=== PATIENT | male | born 1995 | race Caucasian/White ===

== ENCOUNTER 2017-09-06 23:44 | Emergency (ER) | payer MEDICAID ==
[~2017-09-06] VITALS: Ht 180.3 cm; Wt 102.5 kg
[2017-09-07 01:03] VITALS: BP 129/69
== END 2017-09-07 01:06 | disposition home or self-care (01) ==
LOC: EMS 23:46
DX: R07.89 Other chest pain (principal); F12.90 Cannabis use, unspecified, uncomplicated
CPT/HCPCS: 71020; 99284

== ENCOUNTER 2021-01-20 22:11 | Emergency (ER) | payer MEDICAID ==
[~2021-01-20] VITALS: Ht 177.8 cm; Wt 102.3 kg
[2021-01-20] MEDS ORDERED: ACET-2247 PO (22:24)
[2021-01-20] MEDS ORDERED: CAPSAICIN 0.025% 60 GM CREAM TP ONE (23:30)
[2021-01-20] MEDS ORDERED: KETOROLAC TROMETHAMINE 30 MG/ML VIAL IM ONE (23:30)
[2021-01-20] MEDS ORDERED: ACETAMINOPHEN 500 MG TABLET PO ONE (23:30)
[2021-01-20 23:50] VITALS: BP 136/87
== END 2021-01-21 | disposition home or self-care (01) ==
LOC: EMS 22:11
DX: M54.17 Radiculopathy, lumbosacral region (principal)
CPT/HCPCS: 96372; 99283; J1885

== ENCOUNTER 2021-01-21 15:19 | Emergency (ER) | payer MEDICAID ==
[~2021-01-21] VITALS: Ht 177.8 cm; Wt 102.3 kg
[~2021-01-21 15:19] MED LIST: ACET-2247 PO
[2021-01-21] MEDS ORDERED: KETOROLAC TROMETHAMINE 30 MG/ML VIAL IVP ONE (15:45)
[2021-01-21 16:17] LABS: BASOPHILS % (AUTO) 0.6 % (0.0-2.0); EOSINOPHILS % (AUTO) 0.3 % (1.0-6.0); HEMATOCRIT 45.5 % (41-53); HEMOGLOBIN 15.3 g/dL (13.5-17.5); LYMPHOCYTES # (AUTO) 2.4 K/uL (1.0-4.8); LYMPHOCYTES % (AUTO) 23.4 % (22.0-44.0); MEAN CORPUSCULAR HEMOGLOBIN 29.7 pg (26.0-34.0); MEAN CORPUSCULAR HGB CONC 33.6 G/dL (31.0-37.0); MEAN CORPUSCULAR VOLUME 88 fL (80-100); MONOCYTES # (AUTO) 0.5 K/uL (0.1-1.0); MONOCYTES % (AUTO) 4.8 % (2.0-9.0); NEUTROPHILS # (AUTO) 7.3 K/uL (1.8-7.7); NEUTROPHILS % (AUTO) 70.9 % (40.0-70.0); PLATELET COUNT (AUTO) 240 K/uL (150-450); RED BLOOD CELL COUNT(AUTO) 5.16 MIL/uL (4.50-5.90); RED CELL DISTRIBUTION WIDTH 13.3 % (11.5-14.5)
[2021-01-21 16:32] VITALS: BP 117/63
[2021-01-21 16:42] LABS: ANION GAP 16 mmol/L (8-16); CARBON DIOXIDE 25 mmol/L (22-29); CHLORIDE 103 mmol/L (98-107); GLOMERULAR FILTR. RATE CALC > 60 mL/min (>60); GLUCOSE,RANDOM 98 mg/dL (70-110); POTASSIUM 3.4 mmol/L (3.5-5.1); SODIUM SERUM 144 mmol/L (136-145); UREA NITROGEN, BLOOD 13 mg/dL (7-18)
== END 2021-01-21 17:23 | disposition home or self-care (01) ==
LOC: EMS 15:19
DX: F41.9 Anxiety disorder, unspecified (principal)
CPT/HCPCS: 36415; 71045; 80048; 84484; 85025; 93005; 96374; 99285; J1885

== ENCOUNTER 2021-01-28 23:26 | Emergency (ER) | payer MEDICAID ==
[~2021-01-28] VITALS: Ht 177.8 cm; Wt 102.3 kg
[2021-01-29 00:11] VITALS: BP 135/70
== END 2021-01-29 00:11 | disposition home or self-care (01) ==
LOC: EMS 23:26
DX: R07.81 Pleurodynia (principal); F41.9 Anxiety disorder, unspecified; M54.5 Low back pain; F17.200 Nicotine dependence, unspecified, uncomplicated; F12.90 Cannabis use, unspecified, uncomplicated
CPT/HCPCS: 93005; 99283

== ENCOUNTER 2021-03-26 00:40 | Emergency (ER) | payer MEDICAID ==
[~2021-03-26] VITALS: Ht 177.8 cm; Wt 113.6 kg
[2021-03-26 01:36] LABS: MEAN CORPUSCULAR HEMOGLOBIN 30.2 pg (26.0-34.0); MEAN CORPUSCULAR HGB CONC 34.2 G/dL (31.0-37.0); MONOCYTES # (AUTO) 0.7 K/uL (0.1-1.0)
[2021-03-26 01:39] LABS: BASOPHILS % (AUTO) 1.3 % (0.0-2.0); EOSINOPHILS % (AUTO) 0.8 % (1.0-6.0); HEMATOCRIT 42.2 % (41-53); HEMOGLOBIN 14.4 g/dL (13.5-17.5); LYMPHOCYTES # (AUTO) 4.2 K/uL (1.0-4.8); LYMPHOCYTES % (AUTO) 35.3 % (22.0-44.0); MEAN CORPUSCULAR VOLUME 88 fL (80-100); MONOCYTES % (AUTO) 6.2 % (2.0-9.0); NEUTROPHILS # (AUTO) 6.7 K/uL (1.8-7.7); NEUTROPHILS % (AUTO) 56.4 % (40.0-70.0); PLATELET COUNT (AUTO) 238 K/uL (150-450); RED BLOOD CELL COUNT(AUTO) 4.78 MIL/uL (4.50-5.90); RED CELL DISTRIBUTION WIDTH 13.2 % (11.5-14.5)
[2021-03-26 01:41] LABS: ANION GAP 9 mmol/L (8-16); CALCIUM, TOTAL 8.8 mg/dL (8.8-10.5); CARBON DIOXIDE 27 mmol/L (22-29); CHLORIDE 103 mmol/L (98-107); CREATININE 0.83 mg/dL (0.60-1.30); GLOMERULAR FILTR. RATE CALC > 60 mL/min (>60); GLUCOSE,RANDOM 110 mg/dL (70-110); POTASSIUM 3.5 mmol/L (3.5-5.1); SODIUM SERUM 139 mmol/L (136-145); UREA NITROGEN, BLOOD 9 mg/dL (7-18)
[2021-03-26 01:46] LABS: ALANINE AMINOTRANSFERASE 64 U/L (12-78); ALBUMIN 4.1 g/dL (3.4-5.0); ALKALINE PHOSPHATASE 114 U/L (46-116); ASPARTATE AMINOTRANSFERASE 22 U/L (15-37); BILIRUBIN,TOTAL 0.7 mg/dL (0.1-1.0); LIPASE 67 U/L (73-393)
[2021-03-26 02:24] VITALS: BP 130/84
== END 2021-03-26 03:18 | disposition home or self-care (01) ==
LOC: EMS 00:41
DX: K92.1 Melena (principal); R10.12 Left upper quadrant pain; F41.9 Anxiety disorder, unspecified; F17.200 Nicotine dependence, unspecified, uncomplicated; F12.90 Cannabis use, unspecified, uncomplicated
CPT/HCPCS: 80053; 83690; 85025; 99283

== ENCOUNTER 2021-03-31 21:26 | Emergency (ER) | payer MEDICAID ==
[~2021-03-31] VITALS: Ht 177.8 cm; Wt 106.8 kg
[2021-03-31] MEDS ORDERED: HYD25 PO (21:35)
[2021-03-31 22:09] LABS: BASOPHILS % (AUTO) 0.9 % (0.0-2.0); EOSINOPHILS % (AUTO) 0.7 % (1.0-6.0); HEMOGLOBIN 15.3 g/dL (13.5-17.5); LYMPHOCYTES # (AUTO) 3.4 K/uL (1.0-4.8); LYMPHOCYTES % (AUTO) 29.8 % (22.0-44.0); MEAN CORPUSCULAR HEMOGLOBIN 30.2 pg (26.0-34.0); MEAN CORPUSCULAR HGB CONC 33.9 G/dL (31.0-37.0); MEAN CORPUSCULAR VOLUME 89 fL (80-100); MONOCYTES # (AUTO) 0.8 K/uL (0.1-1.0); MONOCYTES % (AUTO) 7.1 % (2.0-9.0); NEUTROPHILS % (AUTO) 61.5 % (40.0-70.0); PLATELET COUNT (AUTO) 267 K/uL (150-450); RED BLOOD CELL COUNT(AUTO) 5.06 MIL/uL (4.50-5.90); RED CELL DISTRIBUTION WIDTH 13.1 % (11.5-14.5)
[2021-03-31 22:10] LABS: BILIRUBIN,URINE NEGATIVE (NEGATIVE); GLUCOSE, URINE (UA) NEGATIVE (NEGATIVE); KETONES,URINE NEGATIVE (NEGATIVE); LEUKOCYTE ESTERASE ,URINE NEGATIVE (NEGATIVE); NITRATE,URINE NEGATIVE (NEGATIVE); OCCULT BLOOD,URINE NEGATIVE (NEGATIVE); PROTEIN,URINE NEGATIVE (NEGATIVE)
[2021-03-31 22:11] LABS: APPEARANCE,URINE HAZY (CLEAR)
[2021-03-31 22:17] LABS: ANION GAP 5 mmol/L (8-16); CALCIUM, TOTAL 8.5 mg/dL (8.8-10.5); CARBON DIOXIDE 29 mmol/L (22-29); CHLORIDE 105 mmol/L (98-107); CREATININE 0.88 mg/dL (0.60-1.30); GLOMERULAR FILTR. RATE CALC > 60 mL/min (>60); GLUCOSE,RANDOM 82 mg/dL (70-110); POTASSIUM 3.5 mmol/L (3.5-5.1); SODIUM SERUM 139 mmol/L (136-145); UREA NITROGEN, BLOOD 12 mg/dL (7-18)
[2021-03-31 22:23] LABS: ALANINE AMINOTRANSFERASE 59 U/L (12-78); ALKALINE PHOSPHATASE 107 U/L (46-116); ASPARTATE AMINOTRANSFERASE 25 U/L (15-37); BILIRUBIN,TOTAL 1.4 mg/dL (0.1-1.0); LIPASE 84 U/L (73-393); TOTAL PROTEIN, SERUM 7.5 g/dL (6.4-8.2)
[2021-03-31] MEDS ORDERED: FAMOTIDINE 10 MG/ML 2 ML VIAL IVP ONE (22:30)
[2021-03-31] MEDS ORDERED: BARIUM SULFATE 0.1% SUSPENSION 450 ML BOTTLE PO ONE (22:30)
[2021-03-31] MEDS ORDERED: ONDANSETRON HCL 4 MG/2 ML VIAL IVP ONE (22:30)
[2021-03-31] MEDS ORDERED: PB/HYOSCY/ATR/SCOP/LIDO/MAALOX 55 ML BOTTLE PO ONE (22:30)
[2021-03-31] MEDS ORDERED: KETOROLAC TROMETHAMINE 30 MG/ML VIAL IVP ONE (22:30)
[2021-03-31] MEDS ORDERED: SODIUM CHLORIDE 0.9% 1,000 ML IV ONE (22:30)
[2021-03-31] MEDS ORDERED: IOHEXOL 350 MG/ML 150 ML VIAL ONE (22:34)
[2021-03-31] MEDS ORDERED: SODIUM CHLORIDE 0.9% 100 ML ONE (22:34)
[2021-04-01] MEDS ORDERED: CIPROFLOXACIN HCL 250 MG TABLET PO ONE (02:15)
[2021-04-01] MEDS ORDERED: MetroNIDAZOLE 250 MG TABLET PO ONE (02:15)
[2021-04-01 02:21] VITALS: BP 123/77
== END 2021-04-01 02:38 | disposition home or self-care (01) ==
LOC: EMS 21:26
DX: K52.9 Noninfective gastroenteritis and colitis, unspecified (principal); F12.90 Cannabis use, unspecified, uncomplicated; Z79.899 Other long term (current) drug therapy
CPT/HCPCS: 36415; 74177; 80053; 81003; 83690; 85025; 96361; 96374; 96375; 99285; A9575; J1885; J2405; J3490; J7030; J7050

== ENCOUNTER 2021-04-14 18:35 | Emergency (ER) | payer MEDICAID ==
[~2021-04-14] VITALS: Ht 172.7 cm; Wt 81.8 kg
[~2021-04-14 18:35] MED LIST changes: -ACET-2247 PO; +HYD25 PO
[2021-04-14 19:14] LABS: BASOPHILS % (AUTO) 0.9 % (0.0-2.0); EOSINOPHILS % (AUTO) 0.5 % (1.0-6.0); HEMATOCRIT 44.1 % (41-53); HEMOGLOBIN 14.9 g/dL (13.5-17.5); LYMPHOCYTES # (AUTO) 2.4 K/uL (1.0-4.8); LYMPHOCYTES % (AUTO) 21.7 % (22.0-44.0); MEAN CORPUSCULAR HEMOGLOBIN 29.9 pg (26.0-34.0); MEAN CORPUSCULAR HGB CONC 33.8 G/dL (31.0-37.0); MEAN CORPUSCULAR VOLUME 88 fL (80-100); MONOCYTES # (AUTO) 0.5 K/uL (0.1-1.0); MONOCYTES % (AUTO) 4.5 % (2.0-9.0); NEUTROPHILS # (AUTO) 7.9 K/uL (1.8-7.7); NEUTROPHILS % (AUTO) 72.4 % (40.0-70.0); PLATELET COUNT (AUTO) 257 K/uL (150-450); RED BLOOD CELL COUNT(AUTO) 4.99 MIL/uL (4.50-5.90)
[2021-04-14 19:24] LABS: ANION GAP 5 mmol/L (8-16); CALCIUM, TOTAL 8.8 mg/dL (8.8-10.5); CARBON DIOXIDE 28 mmol/L (22-29); CHLORIDE 103 mmol/L (98-107); CREATININE 0.74 mg/dL (0.60-1.30); GLOMERULAR FILTR. RATE CALC > 60 mL/min (>60); GLUCOSE,RANDOM 102 mg/dL (70-110); POTASSIUM 3.5 mmol/L (3.5-5.1); SODIUM SERUM 136 mmol/L (136-145); UREA NITROGEN, BLOOD 9 mg/dL (7-18)
[2021-04-14 19:30] LABS: ALANINE AMINOTRANSFERASE 67 U/L (12-78); ALBUMIN 4.3 g/dL (3.4-5.0); ALKALINE PHOSPHATASE 111 U/L (46-116); ASPARTATE AMINOTRANSFERASE 24 U/L (15-37); BILIRUBIN,TOTAL 0.9 mg/dL (0.1-1.0); TOTAL PROTEIN, SERUM 7.2 g/dL (6.4-8.2)
[2021-04-14 19:57] VITALS: BP 126/88
== END 2021-04-14 20:43 | disposition home or self-care (01) ==
LOC: EMS 18:35
DX: R07.89 Other chest pain (principal); R20.0 Anesthesia of skin; F12.90 Cannabis use, unspecified, uncomplicated; Z79.899 Other long term (current) drug therapy
CPT/HCPCS: 80053; 84484; 85025; 93005; 99284

== ENCOUNTER 2021-04-21 00:54 | Emergency (ER) | payer MEDICAID ==
[~2021-04-21] VITALS: Ht 177.8 cm; Wt 109.1 kg
[2021-04-21 02:32] LABS: BASOPHILS % (AUTO) 0.3 % (0.0-2.0); EOSINOPHILS % (AUTO) 0 % (1.0-6.0); HEMATOCRIT 46.2 % (41-53); HEMOGLOBIN 15.2 g/dL (13.5-17.5); LYMPHOCYTES # (AUTO) 0.9 K/uL (1.0-4.8); LYMPHOCYTES % (AUTO) 7.4 % (22.0-44.0); MEAN CORPUSCULAR HEMOGLOBIN 29.6 pg (26.0-34.0); MEAN CORPUSCULAR HGB CONC 32.9 G/dL (31.0-37.0); MEAN CORPUSCULAR VOLUME 90 fL (80-100); MONOCYTES # (AUTO) 0.3 K/uL (0.1-1.0); MONOCYTES % (AUTO) 2.5 % (2.0-9.0); NEUTROPHILS # (AUTO) 11.4 K/uL (1.8-7.7); PLATELET COUNT (AUTO) 269 K/uL (150-450); RED BLOOD CELL COUNT(AUTO) 5.14 MIL/uL (4.50-5.90); RED CELL DISTRIBUTION WIDTH 13.4 % (11.5-14.5)
[2021-04-21 02:43] LABS: NEUTROPHILS % (AUTO) 89.8 % (40.0-70.0)
[2021-04-21 02:53] LABS: ANION GAP 8 mmol/L (8-16); CALCIUM, TOTAL 9.2 mg/dL (8.8-10.5); CARBON DIOXIDE 26 mmol/L (22-29); CHLORIDE 103 mmol/L (98-107); CREATININE 0.76 mg/dL (0.60-1.30); GLOMERULAR FILTR. RATE CALC > 60 mL/min (>60); GLUCOSE,RANDOM 154 mg/dL (70-110); POTASSIUM 3.8 mmol/L (3.5-5.1); SODIUM SERUM 137 mmol/L (136-145); UREA NITROGEN, BLOOD 11 mg/dL (7-18)
[2021-04-21 03:30] VITALS: BP 127/78
== END 2021-04-21 03:50 | disposition home or self-care (01) ==
LOC: EMS 00:56
DX: R07.89 Other chest pain (principal); F41.9 Anxiety disorder, unspecified; F12.90 Cannabis use, unspecified, uncomplicated; Z79.899 Other long term (current) drug therapy
CPT/HCPCS: 71045; 80048; 84484; 85025; 93005; 99285; 36415-L1; 36415-TC

== ENCOUNTER 2021-04-22 16:52 | Emergency (ER) | payer MEDICAID ==
[~2021-04-22] VITALS: Ht 177.8 cm; Wt 109.1 kg
[2021-04-22] MEDS ORDERED: KETOROLAC TROMETHAMINE 60 MG/2 ML VIAL IM ONE (18:00)
[2021-04-22] MEDS ORDERED: DIAZEPAM 5 MG TABLET PO ONE (18:00)
[2021-04-22 18:27] VITALS: BP 128/72
== END 2021-04-22 19:52 | disposition home or self-care (01) ==
LOC: EMS 16:52
DX: M54.5 Low back pain (principal); V49.9XXA Car occupant (driver) (passenger) injured in unspecified traffic accident, initial encounter; Y93.89 Activity, other specified; Y92.488 Other paved roadways as the place of occurrence of the external cause; Y99.8 Other external cause status
CPT/HCPCS: 72100; 96372; 99283; J1885

== ENCOUNTER 2021-05-11 01:17 | Emergency (ER) | payer MEDICAID ==
[~2021-05-11] VITALS: Ht 177.8 cm; Wt 111.4 kg
[2021-05-11] MEDS ORDERED: ACETAMINOPHEN 500 MG TABLET PO ONE (01:45)
[2021-05-11] MEDS ORDERED: LIDOCAINE 5% TRANSDERMAL PATCH TD ONE (01:45)
[2021-05-11] MEDS ORDERED: IBUPROFEN 600 MG TABLET PO ONE (01:45)
[2021-05-11 01:56] LABS: APPEARANCE,URINE CLEAR (CLEAR); BILIRUBIN,URINE NEGATIVE (NEGATIVE); GLUCOSE, URINE (UA) NEGATIVE (NEGATIVE); KETONES,URINE NEGATIVE (NEGATIVE); LEUKOCYTE ESTERASE ,URINE NEGATIVE (NEGATIVE); NITRATE,URINE NEGATIVE (NEGATIVE); OCCULT BLOOD,URINE NEGATIVE (NEGATIVE); PH,URINE 5.5 (5.0-8.0); PROTEIN,URINE NEGATIVE (NEGATIVE); UROBILINOGEN,URINE 0.2 mg/dL (<=1.0)
[2021-05-11 02:19] VITALS: BP 124/82
== END 2021-05-11 02:19 | disposition home or self-care (01) ==
LOC: EMS 01:19
DX: S39.012A Strain of muscle, fascia and tendon of lower back, initial encounter (principal); F41.9 Anxiety disorder, unspecified; F12.90 Cannabis use, unspecified, uncomplicated; F17.290 Nicotine dependence, other tobacco product, uncomplicated; Z79.899 Other long term (current) drug therapy; X50.9XXA Other and unspecified overexertion or strenuous movements or postures, initial encounter; Y93.89 Activity, other specified; Y92.89 Other specified places as the place of occurrence of the external cause; Y99.8 Other external cause status
CPT/HCPCS: 81003; 99284

== ENCOUNTER 2021-05-28 02:36 | Emergency (ER) | payer MEDICAID ==
[~2021-05-28] VITALS: Ht 177.8 cm; Wt 106.8 kg
[2021-05-28 02:38] VITALS: BP 118/79
== END 2021-05-28 04:47 | disposition left against medical advice (07) ==
LOC: EMS 02:37
DX: R51.9 Headache, unspecified (principal); Z53.21 Procedure and treatment not carried out due to patient leaving prior to being seen by health care provider

== ENCOUNTER 2021-06-30 14:31 | Emergency (ER) | payer MEDICAID ==
[~2021-06-30] VITALS: Ht 177.8 cm; Wt 90.9 kg
[2021-06-30] MEDS ORDERED: KETOROLAC TROMETHAMINE 30 MG/ML VIAL IM ONE (15:15)
[2021-06-30] MEDS ORDERED: ACETAMINOPHEN 500 MG TABLET PO ONE (15:15)
[2021-06-30 15:29] LABS: COVID AG,FIA SOURCE NASOPHARYNGEAL
[2021-06-30 17:28] VITALS: BP 120/62
== END 2021-06-30 17:31 | disposition home or self-care (01) ==
LOC: EMS 14:31
DX: R42 Dizziness and giddiness (principal); M79.10 Myalgia, unspecified site; F41.9 Anxiety disorder, unspecified; F17.200 Nicotine dependence, unspecified, uncomplicated; F12.90 Cannabis use, unspecified, uncomplicated; Z20.822 Contact with and (suspected) exposure to COVID-19
CPT/HCPCS: 87426; 96372; 99283; J1885; U0003

== ENCOUNTER 2022-03-08 01:14 | Emergency (ER) | payer MEDICAID ==
[~2022-03-08] VITALS: Ht 177.8 cm; Wt 115.9 kg
[~2022-03-08 01:14] MED LIST changes: -HYD25 PO; +HYDR-4527 PO
[2022-03-08 01:18] VITALS: BP 116/80
[2022-03-08] MEDS ORDERED: [UNRECOGNIZED DRUG - OTHER] IM (01:47)
[2022-03-08] MEDS ORDERED: [UNRECOGNIZED DRUG - OTHER] PO (01:47)
[2022-03-08] MEDS ORDERED: [UNRECOGNIZED DRUG - OTHER] IM (01:47)
== END 2022-03-08 02:30 | disposition left against medical advice (07) ==
LOC: EMS 01:15
DX: Z53.21 Procedure and treatment not carried out due to patient leaving prior to being seen by health care provider (principal)
CPT/HCPCS: 93005

== ENCOUNTER 2022-03-18 02:00 | Emergency (ER) | payer MEDICAID ==
[~2022-03-18] VITALS: Ht 177.8 cm; Wt 100.0 kg
[~2022-03-18 02:00] MED LIST changes: -HYDR-4527 PO; +[UNRECOGNIZED DRUG - OTHER] IM; +[UNRECOGNIZED DRUG - OTHER] IM; +[UNRECOGNIZED DRUG - OTHER] PO
[2022-03-18] MEDS ORDERED: ONDANSETRON HCL 4 MG/2 ML VIAL IVP ONE (02:45)
[2022-03-18] MEDS ORDERED: ONDANSETRON HCL 4 MG TABLET PO ONE (02:45)
[2022-03-18] MEDS ORDERED: MECLIZINE HCL 25 MG TABLET PO ONE (02:45)
[2022-03-18] MEDS ORDERED: SODIUM CHLORIDE 0.9% 1,000 ML IV ONE (02:45)
[2022-03-18 04:03] VITALS: BP 136/85
[2022-03-18] MEDS ORDERED: ONDA-104 PO (04:03)
[2022-03-18] MEDS ORDERED: MECL-134 PO (04:03)
== END 2022-03-18 04:23 | disposition home or self-care (01) ==
LOC: EMS 02:01
DX: H81.8X9 Other disorders of vestibular function, unspecified ear (principal); F41.9 Anxiety disorder, unspecified; F12.90 Cannabis use, unspecified, uncomplicated; Z86.69 Personal history of other diseases of the nervous system and sense organs
CPT/HCPCS: 99283; Q0162

== ENCOUNTER 2022-03-26 00:27 | Emergency (ER) | payer MEDICAID ==
[~2022-03-26] VITALS: Ht 177.8 cm; Wt 111.4 kg
[~2022-03-26 00:27] MED LIST changes: +MECL-134 PO; +ONDA-104 PO
[2022-03-26] MEDS ORDERED: DEXAMETHASONE SOD PHOS 4 MG/ML 5 ML VIAL IVP ONE (01:30)
[2022-03-26] MEDS ORDERED: ALBUTEROL SULFATE HFA 90 MCG/PUFF 8 GM INHALER IH ONE (01:30)
[2022-03-26 02:02] LABS: COVID AG,FIA SOURCE NASAL SWAB
[2022-03-26 02:06] LABS: BASOPHILS % (AUTO) 0.9 % (0.0-2.0); EOSINOPHILS % (AUTO) 1.3 % (1.0-6.0); HEMATOCRIT 41.6 % (41-53); HEMOGLOBIN 14.6 g/dL (13.5-17.5); LYMPHOCYTES # (AUTO) 1.5 K/uL (1.0-4.8); LYMPHOCYTES % (AUTO) 22.6 % (22.0-44.0); MEAN CORPUSCULAR HEMOGLOBIN 30.3 pg (26.0-34.0); MEAN CORPUSCULAR HGB CONC 35.2 G/dL (31.0-37.0); MEAN CORPUSCULAR VOLUME 86 fL (80-100); MONOCYTES # (AUTO) 0.6 K/uL (0.1-1.0); MONOCYTES % (AUTO) 8.4 % (2.0-9.0); NEUTROPHILS # (AUTO) 4.4 K/uL (1.8-7.7); NEUTROPHILS % (AUTO) 66.8 % (40.0-70.0); PLATELET COUNT (AUTO) 225 K/uL (150-450); RED BLOOD CELL COUNT(AUTO) 4.84 MIL/uL (4.50-5.90)
[2022-03-26 02:27] LABS: INFLUENZA TYPE A NEGATIVE FOR TYPE A (NEGATIVE); INFLUENZA TYPE B NEGATIVE FOR TYPE B (NEGATIVE)
[2022-03-26 02:35] LABS: LACTIC ACID 1.4 mmol/L (0.4-2.0)
[2022-03-26 02:42] LABS: B-TYPE NATRIURETIC PEPTIDE < 5 pg/mL (0-100)
[2022-03-26 02:49] LABS: ANION GAP 10 mmol/L (8-16); CALCIUM, TOTAL 8.9 mg/dL (8.8-10.5); CARBON DIOXIDE 27 mmol/L (22-29); CHLORIDE 104 mmol/L (98-107); CREATININE 0.83 mg/dL (0.60-1.30); GLOMERULAR FILTR. RATE CALC > 60 mL/min (>60); GLUCOSE,RANDOM 105 mg/dL (70-110); POTASSIUM 3.3 mmol/L (3.5-5.1); SODIUM SERUM 141 mmol/L (136-145); UREA NITROGEN, BLOOD 8 mg/dL (7-18)
[2022-03-26 03:11] LABS: D-DIMER 0.19 mg/L FEU (0.00-0.50); PROTHROMBIN TIME 10.3 SEC (9.4-11.6)
[2022-03-26 03:13] LABS: ALANINE AMINOTRANSFERASE 80 U/L (12-78); ALBUMIN 3.8 g/dL (3.4-5.0); ALKALINE PHOSPHATASE 99 U/L (46-116); ASPARTATE AMINOTRANSFERASE 32 U/L (15-37); BILIRUBIN,TOTAL 0.7 mg/dL (0.1-1.0); C-REACTIVE PROTEIN QUANT 0.33 mg/dL (0.00-0.30); CREATINE KINASE, TOTAL ONLY 90 U/L (39-308); FERRITIN 189 ng/mL (26-388); LACTATE DEHYDROGENASE 152 U/L (85-227); TOTAL PROTEIN, SERUM 7.1 g/dL (6.4-8.2)
[2022-03-26] MEDS ORDERED: POTASSIUM CHLORIDE 20 MEQ ER TABLET PO ONE (03:30)
[2022-03-26] MEDS ORDERED: ACETAMINOPHEN 325 MG TABLET PO ONE (03:30)
[2022-03-26 04:00] VITALS: BP 132/67
[2022-03-26] MEDS ORDERED: MOLN200C PO (04:02)
== END 2022-03-26 04:30 | disposition left against medical advice (07) ==
LOC: EMS 00:30
DX: U07.1 COVID-19 (principal); F10.20 Alcohol dependence, uncomplicated; F12.10 Cannabis abuse, uncomplicated; F41.9 Anxiety disorder, unspecified
CPT/HCPCS: 36415; 71045; 80053; 82550; 82728; 83605; 83615; 83880; 84145; 84484; 85025; 85379; 85384; 85610; 85730; 86140; 87040; 87426; 87804; 93005; 94640; 96374; 99285; J1100; J3535

== ENCOUNTER 2022-07-27 22:30 | Emergency (ER) | payer MEDICAID ==
[~2022-07-27] VITALS: Ht 177.8 cm; Wt 100.0 kg
[~2022-07-27 22:30] MED LIST changes: +MOLN200C PO
[2022-07-27 22:44] VITALS: BP 147/98
[2022-07-27 23:12] LABS: BASOPHILS % (AUTO) 0.8 % (0.0-2.0); EOSINOPHILS % (AUTO) 0.8 % (1.0-6.0); HEMATOCRIT 46.1 % (41-53); HEMOGLOBIN 15.6 g/dL (13.5-17.5); LYMPHOCYTES # (AUTO) 3.9 K/uL (1.0-4.8); LYMPHOCYTES % (AUTO) 30.8 % (22.0-44.0); MEAN CORPUSCULAR HEMOGLOBIN 29.8 pg (26.0-34.0); MEAN CORPUSCULAR HGB CONC 33.7 G/dL (31.0-37.0); MEAN CORPUSCULAR VOLUME 88 fL (80-100); MONOCYTES # (AUTO) 0.8 K/uL (0.1-1.0); NEUTROPHILS # (AUTO) 7.7 K/uL (1.8-7.7); NEUTROPHILS % (AUTO) 61.6 % (40.0-70.0); PLATELET COUNT (AUTO) 253 K/uL (150-450); RED BLOOD CELL COUNT(AUTO) 5.23 MIL/uL (4.50-5.90); RED CELL DISTRIBUTION WIDTH 13.2 % (11.5-14.5)
[2022-07-27 23:22] LABS: ANION GAP 5 mmol/L (8-16); CALCIUM, TOTAL 9.1 mg/dL (8.8-10.5); CARBON DIOXIDE 27 mmol/L (22-29); CHLORIDE 105 mmol/L (98-107); CREATININE 0.94 mg/dL (0.60-1.30); GLUCOSE,RANDOM 124 mg/dL (70-110); POTASSIUM 3.3 mmol/L (3.5-5.1); SODIUM SERUM 137 mmol/L (136-145); UREA NITROGEN, BLOOD 11 mg/dL (7-18)
[2022-07-27 23:24] LABS: GLOMERULAR FILTR. RATE CALC > 60 mL/min (>60)
[2022-07-27 23:27] LABS: APPEARANCE,URINE CLEAR (CLEAR); BILIRUBIN,URINE NEGATIVE (NEGATIVE); GLUCOSE, URINE (UA) NEGATIVE (NEGATIVE); KETONES,URINE NEGATIVE (NEGATIVE); LEUKOCYTE ESTERASE ,URINE NEGATIVE (NEGATIVE); NITRATE,URINE NEGATIVE (NEGATIVE); OCCULT BLOOD,URINE NEGATIVE (NEGATIVE); PROTEIN,URINE TRACE mg/dL (NEGATIVE); SPECIFIC GRAVITIY, URINE 1.027 (1.003-1.030); UROBILINOGEN,URINE <=1.0 mg/dL (<=1.0)
[2022-07-27 23:30] LABS: ALANINE AMINOTRANSFERASE 54 U/L (12-78); ALKALINE PHOSPHATASE 112 U/L (46-116); ASPARTATE AMINOTRANSFERASE 16 U/L (15-37); BILIRUBIN,TOTAL 0.6 mg/dL (0.1-1.0); TOTAL PROTEIN, SERUM 7.2 g/dL (6.4-8.2)
[2022-07-27 23:33] LABS: AMPHET/METH SCREEN,URINE NEGATIVE (NEGATIVE); BARBITURATE SCREEN, URINE NEGATIVE (NEGATIVE); BENZODIAZEPINES SCREEN,URINE NEGATIVE (NEGATIVE); CANNABINOID SCREEN,URINE POSITIVE (NEGATIVE); COCAINE SCREEN,URINE NEGATIVE (NEGATIVE); METHADONE SCREEN, URINE NEGATIVE (NEGATIVE); OPIATE SCREEN,URINE NEGATIVE (NEGATIVE)
[2022-07-27 23:34] LABS: PHENCYCLIDINE SCREEN,URINE NEGATIVE (NEGATIVE)
[2022-07-27 23:40] LABS: BACTERIA,URINE None Seen /HPF (None Seen); RBC,URINE None Seen /HPF (0-2); SQUAMOUS EPITHELIAL CELL,UR None Seen /LPF (None Seen); WBC,URINE 0-2 /HPF (0-5)
== END 2022-07-28 01:14 | disposition home or self-care (01) ==
LOC: EMS 22:38
DX: R00.2 Palpitations (principal); F10.20 Alcohol dependence, uncomplicated; F12.90 Cannabis use, unspecified, uncomplicated; F41.9 Anxiety disorder, unspecified
CPT/HCPCS: 71045; 80053; 81001; 84484; 85025; 93005; 99285; 36415-L1; 36415-TC

== ENCOUNTER 2022-08-08 01:25 | Emergency (ER) | payer MEDICAID ==
[~2022-08-08] VITALS: Ht 177.8 cm; Wt 100.9 kg
[2022-08-08 02:16] LABS: BASOPHILS % (AUTO) 0.8 % (0.0-2.0); EOSINOPHILS % (AUTO) 0.7 % (1.0-6.0); HEMATOCRIT 44.4 % (41-53); HEMOGLOBIN 15.1 g/dL (13.5-17.5); LYMPHOCYTES # (AUTO) 3.8 K/uL (1.0-4.8); LYMPHOCYTES % (AUTO) 34.7 % (22.0-44.0); MEAN CORPUSCULAR HEMOGLOBIN 30.1 pg (26.0-34.0); MEAN CORPUSCULAR VOLUME 88 fL (80-100); MONOCYTES # (AUTO) 0.5 K/uL (0.1-1.0); MONOCYTES % (AUTO) 4.8 % (2.0-9.0); NEUTROPHILS # (AUTO) 6.4 K/uL (1.8-7.7); PLATELET COUNT (AUTO) 241 K/uL (150-450); RED BLOOD CELL COUNT(AUTO) 5.02 MIL/uL (4.50-5.90); RED CELL DISTRIBUTION WIDTH 13.5 % (11.5-14.5)
[2022-08-08 02:28] LABS: ANION GAP 8 mmol/L (8-16); CALCIUM, TOTAL 8.9 mg/dL (8.8-10.5); CARBON DIOXIDE 27 mmol/L (22-29); CHLORIDE 102 mmol/L (98-107); CREATININE 0.93 mg/dL (0.60-1.30); GLUCOSE,RANDOM 129 mg/dL (70-110); POTASSIUM 3.5 mmol/L (3.5-5.1); SODIUM SERUM 137 mmol/L (136-145); UREA NITROGEN, BLOOD 12 mg/dL (7-18)
[2022-08-08 02:30] LABS: PROTHROMBIN TIME 10.5 SEC (9.4-11.6)
[2022-08-08 02:33] LABS: GLOMERULAR FILTR. RATE CALC > 60 mL/min (>60)
[2022-08-08 02:36] LABS: ALANINE AMINOTRANSFERASE 50 U/L (12-78); ALBUMIN 3.9 g/dL (3.4-5.0); ALKALINE PHOSPHATASE 111 U/L (46-116); ASPARTATE AMINOTRANSFERASE 17 U/L (15-37); BILIRUBIN,TOTAL 0.6 mg/dL (0.1-1.0); CREATINE KINASE, TOTAL ONLY 121 U/L (39-308)
[2022-08-08 02:41] LABS: B-TYPE NATRIURETIC PEPTIDE < 5 pg/mL (0-100)
[2022-08-08 03:27] VITALS: BP 117/69
== END 2022-08-08 03:36 | disposition home or self-care (01) ==
LOC: EMS 01:26
DX: R07.89 Other chest pain (principal); F41.9 Anxiety disorder, unspecified; E78.00 Pure hypercholesterolemia, unspecified; M54.2 Cervicalgia
CPT/HCPCS: 71045; 80053; 82550; 83880; 84484; 85025; 85610; 85730; 93005; 99285; 36415-L1; 36415-TC

== ENCOUNTER 2023-01-04 17:11 | Emergency (ER) | payer MEDICAID ==
[~2023-01-04] VITALS: Ht 177.8 cm; Wt 104.5 kg
[2023-01-04 18:53] VITALS: BP 120/78
== END 2023-01-04 18:56 | disposition home or self-care (01) ==
LOC: EMS 17:11
DX: R07.89 Other chest pain (principal); F41.9 Anxiety disorder, unspecified; E78.00 Pure hypercholesterolemia, unspecified; E78.5 Hyperlipidemia, unspecified
CPT/HCPCS: 71045; 93005; 99283